=== PATIENT | male | born 2000 | race Caucasian/White ===

== ENCOUNTER → 2019-10-28 | Outpatient (CLI) | payer BC ==
--- NOTE | 2019-10-28 15:50 | Diagnostic Imaging Report ---
EXAMINATION: Chest 2 view HISTORY: Cough. Shortness of breath. Fever. COMPARISON: None available. FINDINGS: The lung volumes are normal. No focal consolidation is seen. No large pleural effusion or pneumothorax is seen. The cardiomediastinal silhouette is normal in size and contour. No acute osseous abnormality is seen. IMPRESSION: 1. No acute pleuroparenchymal process. Dictated by: Dictated on workstation # [id number]
== END ==
LOC: RAD 15:05
PROVIDERS: ATTEND Family Medicine
DX: R05 Cough (principal)
CPT/HCPCS: 71046

== ENCOUNTER → 2020-01-27 | Outpatient (CLI) | payer BC ==
--- NOTE | 2020-01-27 15:42 | Diagnostic Imaging Report ---
PROCEDURE: MR imaging of the brain without contrast. TECHNIQUE: Multiplanar, multisequence MR imaging of the brain was performed without contrast. INDICATION: Headaches. COMPARISON: No prior studies are available for comparison. FINDINGS: Ventricular size and sulcal pattern are normal. The normal expected flow-voids within the carotid siphons are seen. There is no diffusion restriction identified. There is no mass effect or midline shift. No acute intra-axial or extra-axial hemorrhage is detected. Corpus callosum is unremarkable. The sella and parasellar structures are unremarkable. IMPRESSION: Unremarkable noncontrast MRI of the brain. Dictated by: Dictated on workstation # [id number]
== END ==
LOC: RAD 13:43
PROVIDERS: ATTEND Family Medicine
DX: R51 Headache (principal); R42 Dizziness and giddiness; J30.2 Other seasonal allergic rhinitis; J20.9 Acute bronchitis, unspecified; L30.1 Dyshidrosis [pompholyx]
CPT/HCPCS: 70551

== ENCOUNTER 2022-06-15 00:36 | Emergency (ER) | payer BC ==
[~2022-06-15] VITALS: Ht 177.8 cm; Wt 72.5 kg
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
[2022-06-15 01:03] VITALS: BP 141/76
== END 2022-06-15 01:04 | disposition home or self-care (01) ==
LOC: EDUNIT# 00:36 → ER 00:38
DX: S09.90XA Unspecified injury of head, initial encounter (principal); S00.01XA Abrasion of scalp, initial encounter; Y04.0XXA Assault by unarmed brawl or fight, initial encounter; W18.30XA Fall on same level, unspecified, initial encounter
CPT/HCPCS: 99281